=== PATIENT | female | born 1950 | race African-American/Black ===

== ENCOUNTER 2016-05-25 18:25 | Emergency (ER) ==
[2016-05-25 20:15] LABS: BASO% 0.4 % (0.0-0.8); EOS# 0.36 X1000 (0.0-0.7); EOS% 3.3 % (0.0-10.0); HEMATOCRIT 29.2 % (37.0-47.0); HEMOGLOBIN 9.6 g/dL (12.0-16.0); IMM GRAN# 0.05 X1000 (0.0-0.04); IMM GRAN% 0.5 % (0.0-0.5); LYMPH# 3.01 X1000 (1.2-3.4); LYMPH% 27.5 % (20.5-51.1); MANUAL DIFF NEEDED? NO; MCH 27.2 PG (27-31); MCHC 32.9 g/dL (33-37); MCV 82.7 FL (81-99); MPV 10.1 FL (7.4-10.4); NEUT% 57.3 % (42.2-75.2); PLT 469 X1000 (130-400); RBC 3.53 XMIL (4.2-5.4)
[2016-05-25] MEDS ORDERED: ZOFRAN IV ONE (20:17)
[2016-05-25] MEDS ORDERED: NS 1,000 ML IV ONE (20:17)
--- NOTE | 2016-05-25 20:18 | PROVIDER DOCUMENTATION ---
HPI-Abdominal Pain/GI Problem - General Source: patient - History of Present Illness-ABD Nature of Presenting Problems: 65 year old AAF presents with c/o vomiting x 3 today, decreased appetite, diarrhea x 1. Pt reports cramping just prior to diarrhea, otherwise denies abd pain. pt has a washout scheduled for the surgical site to her right hip tomorrow morning. pt had an ORIF 1 month ago and has been having difficulty healing. the surgical site is still open, dressing in place. denies fever, chills. Abdominal Pain Onset Location: reports: generalized abdomen (jut prior to diarrhea, otherwise pain free.) Pain Radiation: reports: no radiation Quality of Pain: reports: cramping Severity in ED: reports: mild Onset/Duration: reports: this afternoon Timing: reports: still present, improving Activities at Onset: reports: none Exposure to sick contacts?: No <Prince Rodrigues - Last Filed: 05/26/16 01:27> <Ace Ellis - Last Filed: 05/26/16 01:55> <Mk Cho - Last Filed: 05/26/16 04:30> - General Chief Complaint: Vomiting Stated Complaint: VOMITING, SHAKING Time Seen by Provider: 05/25/16 19:55 Allergies/Adverse Reactions: Patient Allergies Allergy/AdvReac Type Severity Reaction Status Date / Time No Known Allergies Allergy Verified 05/25/16 19:54 Home Medications: Home Medication List Medication Instructions Recorded Confirmed Last Taken Type LISINOpril [Prinivil] 20 mg PO DAILY 12/06/15 05/26/16 05/25/16 07:00 History Metoprolol [Lopressor] 50 mg PO DAILY 12/06/15 05/26/16 05/25/16 07:00 History ROSUVAstatin [Crestor] 20 mg PO DAILY 12/06/15 05/26/16 05/25/16 07:00 History Celecoxib [Celebrex] 200 mg PO BID #0 capsule 05/01/16 05/26/16 05/25/16 20:00 Rx Oxycodone I.r. [Oxy Ir] 5 - 10 mg PO Q3H PRN PRN #60 05/01/16 05/26/16 05/25/16 12:00 Rx capsule Tramadol [Ultram] 100 mg PO Q6H #120 tablet 05/01/16 05/26/16 05/25/16 20:00 Rx Budesonide/Formoterol Inhaler 2 puff INH BID 05/23/16 05/26/16 Unknown History [Symbicort 80/4.5 Microgm Inhaler] Metformin [Glucophage] 500 mg PO TID 05/26/16 05/26/16 05/25/16 20:00 History Rivaroxaban [Xarelto] 10 mg PO DAILY 05/26/16 05/26/16 Unknown History Review of Systems - Adult - REVIEW OF SYSTEMS - ADULT Constitutional: reports: no symptoms reported. denies: chills, fever, fatique Eyes: reports: no symptoms reported. denies: discharge, blurred vision, double vision Ears, Nose, Mouth & Throat: reports: no symptoms reported. denies: ear discharge, ear pain, nose pain, loose teeth, throat pain, throat swelling Cardiovascular: reports: no symptoms reported. denies: chest pain, palpitations , syncope Respiratory: reports: no symptoms reported. denies: chronic cough, cough, shortness of breath, wheezing Gastrointestinal: reports: see HPI, nausea, poor appetite, vomiting. denies: abdominal pain, hematemesis, constipation, diarrhea, difficulty swallowing, frequent heartburn, rectal bleeding Genitourinary: reports: no symptoms reported. denies: dysuria, hematuria, urgency Musculoskeletal: reports: no symptoms reported. denies: bone pain, joint pain, joint swelling, neck pain Integumentary: reports: no symptoms reported. denies: hives, itching, rash, skin sores/ulcer Neurological: reports: no symptoms reported. denies: ataxia, numbness, paresthesia Psychiatric: reports: no symptoms reported Endocrine: reports: no symptoms reported Hematologic/Lymphatic: reports: no symptoms reported Allergic/Immunologic: reports: no symptoms reported All Other Systems: Reviewed and Negative <Prince Rodrigues - Last Filed: 05/26/16 01:27> Past History - Adult - PAST MEDICAL HISTORY-ADULT Review of Records: reports: Old Records Reviewed, Nursing Assessment Review, Medications Reviewed, Social history reviewed & non-contributory. Major Childhood Illnesses: reports: denies history Cardiovascular: reports: HTN Respiratory: reports: denies history Gastrointestinal: reports: denies history Obstetrical/Gynecological: reports: denies history Genitourinary: reports: denies history Musculoskeletal: reports: arthritis, intervertebral disc disease Neurological: reports: denies history Endocrine/Immune: reports: Diabetes (on metformin) Other Conditions: reports: denies history - PRIOR SURGERIES/PROCEDURES Surgical/Procedure History: reports: orthopedic (extremity) - FAMILY HISTORY Family History: reviewed, not pertinent - SOCIAL HISTORY Smoking: cigarettes Provider spent 3-5 mins advising pt. on dangers of tobacco.: Discussed manners to quit use, and f/u contacts for add'l counseling. Substance Use: none/never Alcohol Use Frequency: never <Prince Rodrigues - Last Filed: 05/26/16 01:27> Physical Exam-General - PHYSICAL EXAM-ADULT Initial Vital Signs Reviewed: Yes - CONSTITUTIONAL General Appearance: appears well, alert, no apparent distress. negative: cachetic, obese - EYES Eyes: pink conjunctivae. negative: conjuctival exudate, pale conjunctivae, photophobia, sclera injected, scleral icterus - HEAD, EARS, NOSE, MOUTH & THROAT HENMT: normocephalic/atraumatic, moist mucous membranes, normal ENT inspection - NECK Neck: non-tender, full range of motion, supple, normal inspection. negative: C- spine tenderness, limited range of motion, tender lateral, tender midline - RESPIRATORY Respiratory: chest non-tender, lungs clear, normal breath sounds, no pleuratic chest pain, no respiratory distress, no accessory muscle use - CARDIOVASCULAR Cardiovascular: normal peripheral pulses, regular rate, rhythm - CHEST (BREASTS) Chest/Breast: deferred - GASTROINTESTINAL (ABDOMEN) Abdominal Exam: normal bowel sounds, non tender, soft, no organomegaly. negative: distended, guarding, rigid, rebound, tenderness, hernia, mass, hepatomegaly, spleenomegaly, McBurney's point tenderness, Ortiz's sign, obturator sign, psoas, Rovsing's sign - GENITOURINARY Female Genitalia/Pelvic Exam: deferred Rectal Exam: deferred Hemoccult Exam: deferred - LYMPHATIC Lymphatic: no adenopathy - MUSCULOSKELETAL Back Exam: normal inspection, no CVA tenderness, no vertebral tenderness. negative: CVA tenderness, decreased range of motion, swelling, vertebral tenderness Extremity: pelvis stable, abnormal NV exam, pedal edema (trace pedal edema to right lower extremity.), other. negative: normal range of motion (decreased to RLE), non-tender (right anterior hip surgical site open.), normal gait, normal inspection, no pedal edema, calf tenderness, deformity Peripheral Pulses: radial (R): 3+, radial (L): 3+, dorsalis-pedis (R): 3+, dorsalis-pedis (L): 3+ - SKIN Integumentary: normal color, normal turgor, warm/dry. negative: purpura, rash, swelling, tenderness - NEUROLOGIC Neurologic: grossly normal, no motor/sensory deficits. negative: facial droop, focal weakness, motor weakness, sensory deficit - PSYCHIATRIC Psych/Mental Status: normal mood/affect, normal thought content, normal thought process, oriented x 3 <Prince Rodrigues - Last Filed: 05/26/16 01:27> Progress - PLAN OF CARE/RESULTS Progress/Plan/Lab Results: Laboratory Tests 05/25/16 05/25/16 05/25/16 20:02 20:02 21:58 WBC 10.94 H RBC 3.53 L Hgb 9.6 L Hct 29.2 L MCV 82.7 MCH 27.2 MCHC 32.9 L RDW Std Deviation 17.3 H Plt Count 469 H MPV 10.1 Immature Gran % (Auto) 0.5 Neut % (Auto) 57.3 Lymph % (Auto) 27.5 [place] % (Auto) 11.0 H Eos % (Auto) 3.3 Baso % (Auto) 0.4 Immature Gran # (Auto) 0.05 H Neut # (Auto) 6.28 Lymph # (Auto) 3.01 [place] # (Auto) 1.20 H Eos # (Auto) 0.36 Baso # (Auto) 0.04 Sodium 142 Potassium 4.8 Chloride 103 Carbon Dioxide 25 Anion Gap 14 BUN 15 Creatinine 1.4 H Estimated GFR/1.73 m2 45 BUN/Creatinine Ratio 11 Glucose 97 Calculated Osmolality 284 Calcium 10.3 H Total Bilirubin 0.36 AST 38 H ALT 42 H Alkaline Phosphatase 178 H Total Protein 7.9 Albumin 3.9 Globulin 4.0 Albumin/Globulin Ratio 1.0 Amylase 215 H Lipase 25 Urine Source CLEAN CATCH Urine Color YELLOW Urine Turbidity CLEAR Urine pH 7.5 Ur Specific [place] 1.010 Urine Protein NEGATIVE Ur Glucose (Stick) NEGATIVE Ur Ketones (Stick) NEGATIVE Urine Blood NEGATIVE Urine Nitrite NEGATIVE Urine Bilirubin NEGATIVE Urobilinogen Dipstick NORMAL Urine Leukocytes NEGATIVE Urine WBC (Auto) <10 Urine RBC (Auto) <10 U Epithel Cells (Auto) <10 Urine Bacteria (Auto) NEGATIVE Orders Category Date Time Status Saline Loc DIRECTED Care 05/25/16 19:20 Active NPO Diet 05/25/16 19:20 Active FLAT/UPRIGHT ABD/1 VIEW CHEST [RAD] Stat Exams 05/25/16 20:17 Taken US GB < RUQ (LIMITED) [US] Stat Exams 05/25/16 22:20 Taken AMYLASE [CHEM] Stat Lab 05/25/16 20:02 Completed CBC WITH ELECTRONIC DIFF [HEME] Stat Lab 05/25/16 20:02 Completed COMPREHENSIVE METABOLIC PANEL [CHEM] Stat Lab 05/25/16 20:02 Completed LIPASE [CHEM] Stat Lab 05/25/16 20:02 Completed URINALYSIS W/POSS RFLX CULT [URINALYSIS] Stat Lab 05/25/16 21:58 Completed 0.9% Sodium Chloride Inj [Ns] 1,000 ml Med 05/25/16 20:17 Discontinued IV 999 mls/hr Ondansetron [Zofran] Med 05/25/16 20:17 Discontinued 4 mg IV NOW ONE Vital Signs - 24 hr 05/25/16 05/25/16 05/26/16 18:30 22:53 00:40 Temperature 98.9 F Pulse Rate 111 H 83 78 Respiratory 18 18 19 Rate Blood Pressure 172/73 102/51 118/75 O2 Sat by Pulse 98 100 95 Oximetry Reviewed radiology results, labs, H&P with Dr. Cho, agrees with plan of care and treatment. - REASSESSMENT Reassessment #1 Time Reassessed: 00:43 Status: improving (pt is pain free) - XRAY 1 XRAY Study: Chest, Abdomen Impression: Normal (nonspecific bowel gas pattern. per Dr. Cho) - ULTRASOUND (By Radiology) 1 US Study: Gallbladder Impression: Abnormal (multifocal cholelithiasis, see radiology report for findings. per Dr. Trejo.) - CHANGE OF SHIFT REPORT (ED Provider) Report Given and Care Transferred to:: Dr. Cho Time of Transfer: 01:28 Items Pending: CT/MRI Results (CT abd/pelvis results and general surgery consult ) Tentative Impression of Patient: 1. cholelithiasis 2. common bile duct dilation , unknown etiology. <Prince Rodrigues - Last Filed: 05/26/16 01:27> - CT/MRI 1 CT Study: Abdomen, Pelvis Impression: See EMR Report CT Results: Cholelithiasis present <Ace Ellis - Last Filed: 05/26/16 01:55> Departure - Departure Certified Medical Emergency: Emergent <Prince Rodrigues - Last Filed: 05/26/16 01:27> <Ace Ellis - Last Filed: 05/26/16 01:55> - Departure Time of Disposition Order: 04:00 Certified Medical Emergency: Emergent <Mk Cho - Last Filed: 05/26/16 04:30> - Departure DIAGNOSIS: Cholelithiasis Qualifiers: Cholelithiasis location: gallbladder Cholecystitis presence: without cholecystitis Biliary obstruction: without biliary obstruction Qualified Code(s) : K80.20 - Calculus of gallbladder without cholecystitis without obstruction Disposition: HOME 01 Condition: Stable Additional Instructions: ED Follow Up Instructions: You have been treated by a care provider in the Emergency Department. These instructions are being provided to you so you can have an understanding of how to care for yourself upon discharge. Upon discharge from the Emergency Department, you are responsible for making arrangements for follow-up care by a physician of your choice. Take all prescribed medications as directed. Return to the Emergency Department immediately for any new or worsening symptoms. You may call the Physician Referral phone number at [phone] to obtain a list of Physicians who are taking new patients. Referrals: Ricardo Hyatt Jr, MD [Primary Care Provider] - Instructions: Cholelithiasis, [id number] Attestation - Physician/ MALIK Attestation Patient care was provided by Advanced Practice Provider:: Yes Advanced Practice Provider:: Prince Rodrigues Advanced Practice Provider documentation review:: The Mid-level provider documentation, treatment plan and medical decision making was reviewed by the physician who agrees with all treatment and medical decision making by the [facility]. <Prince Rodrigues - Last Filed: 05/26/16 01:27> Physician Attestation
[2016-05-25 20:39] LABS: ALBUMIN 3.9 g/dL (3.5-5.0); CALCIUM 10.3 mg/dL (8.8-10.2); POTASSIUM 4.8 mmol/L (3.5-5.1); TOTAL BILIRUBIN 0.36 mg/dL (0.20-1.00); TOTAL PROTEIN 7.9 g/dL (6.3-8.3)
[2016-05-25 22:25] LABS: URINE CULTURE NEEDED? NO; URINE MICRO REVIEW NEEDED? NO; URINE SOURCE CLEAN CATCH
[2016-05-25 22:30] LABS: BILIRUBIN URINE NEGATIVE (NEGATIVE); BLOOD URINE NEGATIVE (NEGATIVE); COLOR YELLOW; GLUCOSE URINE NEGATIVE (NEGATIVE); LEUKOCYTES URINE NEGATIVE (NEGATIVE); NITRITE URINE NEGATIVE (NEGATIVE); PH URINE 7.5; PROTEIN URINE NEGATIVE (NEGATIVE); TURBIDITY URINE CLEAR (CLEAR); UROBILINOGEN URINE NORMAL (NORMAL)
[2016-05-25 22:32] LABS: UR EPITHELIAL CELLS <10 /HPF (<10); URINE BACTERIA NEGATIVE /HPF; URINE RBC <10 /HPF (<10); URINE WBC <10 /HPF (<10)
[2016-05-26 04:39] VITALS: BP 120/64
--- NOTE | 2016-05-26 08:04 | Diag Imaging Result Document ---
PROCEDURE NAME: FLAT/UPRIGHT ABD/1 VIEW CHEST - 05/25/2016 FLAT AND UPRIGHT ABDOMEN: FINDINGS: There is gas and stool throughout the colon. The small bowel and stomach are not distended. There is no evidence of organomegaly or mass. IMPRESSION: Constipation. AP CHEST: FINDINGS: Normal chest.
--- NOTE | 2016-05-26 08:31 | Diag Imaging Result Document ---
PROCEDURE NAME: US GB < RUQ (LIMITED) - 05/25/2016 RIGHT UPPER QUADRANT ULTRASOUND: FINDINGS: The pancreatic head and body are normal in appearance. The aorta and inferior vena cava are normal where they are visible. The liver is unremarkable in appearance. There is antegrade flow in the portal vein. The common bile duct measures 1 cm in diameter. The gallbladder appears to be filled with stones. One may be as much as 3 cm in diameter. There is no sonographic Ortiz's sign. The gallbladder does not appear to be distended. The right kidney is without evidence of hydronephrosis or mass. IMPRESSION: Cholelithiasis.
--- NOTE | 2016-05-26 10:13 | Diag Imaging Result Document ---
PROCEDURE NAME: ABDOMEN/PELVIS W/O CONTRAST - 05/26/2016 CT ABDOMEN AND PELVIS WITHOUT CONTRAST: COMPARISON: None available. FINDINGS: There is mild focal scarring in the right middle lobe and right lower lobe at the base. There is a small calcified granuloma in the right middle lobe. There is a small calcified granuloma in the left hepatic lobe. There is a large calcified stone in the lumen of the gallbladder measuring up to 2.9 cm axially. No pericholecystic inflammatory change can be identified. There may be very mild dilation of the proximal common bile duct. There is no intrahepatic biliary dilatation. The pancreas is grossly unremarkable given the limitations of unenhanced CT. There is mild atherosclerotic calcification involving the distal aorta and more significant iliac atherosclerotic calcification. There are calcifications in the uterus suggesting likely uterine leiomyomata. There is no evidence of bowel obstruction. The kidneys are grossly unremarkable. No focal inflammatory change, free abdominal gas, or free fluid is identified. The remainder of the solid viscera of the abdomen and pelvis and the remainder of the GI tract is essentially unremarkable. There has been a prior right hip arthroplasty and there is associated beam hardening artifact. There is extensive degenerative disk disease involving the lower lumbar spine. IMPRESSION: 1. Cholelithiasis and perhaps very mild dilation of the proximal common bile duct but no surrounding inflammatory changes identified by CT. 2. Other incidental/nonacute findings detailed above.
== END 2016-05-26 05:02 | disposition home or self-care (01) ==
LOC: ED 18:25
DX: K80.20 Calculus of gallbladder without cholecystitis without obstruction (principal); R11.2 Nausea with vomiting, unspecified; R19.7 Diarrhea, unspecified; R10.84 Generalized abdominal pain; I10 Essential (primary) hypertension; M19.90 Unspecified osteoarthritis, unspecified site; E11.9 Type 2 diabetes mellitus without complications; F17.210 Nicotine dependence, cigarettes, uncomplicated; Z79.899 Other long term (current) drug therapy; Z79.01 Long term (current) use of anticoagulants; Z71.6 Tobacco abuse counseling
CPT/HCPCS: 74022; 74176; 76705; 80053; 81001; 82150; 83690; 85025; J2405; J7030

== ENCOUNTER 2016-05-26 10:48 | Inpatient (IN) ==
[2016-05-26] MEDS ORDERED: LR 1,000 ML ONE (11:41)
[2016-05-26] MEDS ORDERED: NEOSPORIN G.U. IRRIGANT ONE (15:09)
[2016-05-26] MEDS ORDERED: CLAVE SECONDARY SET 11953 ONE (15:22)
[2016-05-26] MEDS ORDERED: VANCOMYCIN 1 GM/NS 250 ML ONE (15:22)
[2016-05-26] MEDS ORDERED: SENSORCAINE 0.5%-EPI 1:200,000 ONE (15:59)
[2016-05-26] MEDS ORDERED: DIPRIVAN 1% ONE (16:18)
[2016-05-26] MEDS ORDERED: VERSED ONE (16:18)
[2016-05-26] MEDS ORDERED: FENTANYL ONE (16:20)
[2016-05-26] MEDS ORDERED: ZOFRAN ONE (16:29)
[2016-05-26] MEDS ORDERED: XYLOCAINE-MPF 2% ONE (16:30)
[2016-05-26] MEDS ORDERED: DECADRON ONE (16:30)
[2016-05-26] MEDS ORDERED: MORPHINE ONE (16:36)
[2016-05-26] MEDS ORDERED: MORPHINE IV PRN (17:06)
[2016-05-26] MEDS ORDERED: VANCOMYCIN IV PER PHARMACY MISC SCH (17:15)
[2016-05-26] MEDS ORDERED: OXY IR PO PRN (17:26)
[2016-05-26] MEDS ORDERED: VANCOMYCIN 500 MG/NS 100 ML IV ONE (18:00)
[2016-05-26] MEDS: ULTRAM PO SCH ×2 (18:04→21:49)
[2016-05-26] MEDS ORDERED: NS 1,000 ML ONE (18:33)
[2016-05-26] MEDS: NS 1,000 ML IV SCH (18:39)
--- NOTE | 2016-05-26 19:18 | OPERATIVE NOTE ---
PROCEDURE DATE: 05/26/2016 PREOPERATIVE DIAGNOSIS: Right infected total hip arthroplasty superficial wound infection. POSTOPERATIVE DIAGNOSIS: Right infected total hip arthroplasty superficial wound infection. PROCEDURE PERFORMED: Incision and drainage of right hip superficial wound infection. SURGEON: German Young MD COLLECTIONS AND ARCHIVES DIRECTOR: Adair Rodrigues RN ANESTHESIA: General. COMPLICATIONS: None. BLOOD LOSS: Minimal. DESCRIPTION OF PROCEDURE: The patient was brought to the operative suite and placed in supine position. After successful administration of general anesthesia, the right hip was prepped and draped in the usual sterile fashion. Cultures were taken of the wound and then she was given a gram of Ancef. The sinus tract was excised elliptically and then the wound was extended distally to include the entire pocket which communicated with the sinus. Once the pocket was excised back to bleeding, healthy tissue, the wound was copiously irrigated with normal saline containing irrigant. A drain was placed in the wound, exiting distally, and wound was closed with interrupted 3-0 nylon suture. The wound was injected with 0.5% Marcaine with epinephrine and then a sterile dressing was applied. The patient tolerated the procedure well without complication. At the end of the procedure, all counts were correct. The patient was transferred to the recovery room in stable condition.
[2016-05-26] MEDS: SYMBICORT 80/4.5 MICROGM INHALER INH SCH (19:39)
[2016-05-26] MEDS: CELEBREX PO SCH (21:49)
[2016-05-26] MEDS: PERIDEX MT SCH (21:49)
[2016-05-27] MEDS: ULTRAM PO SCH ×5 (00:54→23:08)
--- NOTE | 2016-05-27 09:10 | PROGRESS NOTE ---
DATE: 05/27/2016 SUBJECTIVE: Fawn Nickerson, a 65-year-old female, had a superficial wound infection of her right recent total hip arthroplasty. She is postoperative day 1 from an irrigation and debridement of this wound. She has no complaints. OBJECTIVE: General: She is a well-developed, well-nourished female. She is alert, oriented, and cooperative. Vital Signs: She is afebrile. Extremities: Her dressing is clean, dry, and intact. She has had no output from her drain. LABS: Her Gram stain was negative. We await her culture results. ASSESSMENT: Postoperative day 1 from a right hip wound with irrigation and debridement. PLAN: We will continue to keep her on IV antibiotics for now. We will await her culture results, and depending on those she may go home with p.o. versus IV medications later in the week. We will make her a full admission today.
[2016-05-27] MEDS: SYMBICORT 80/4.5 MICROGM INHALER INH SCH ×2 (09:30→19:18)
[2016-05-27] MEDS: PERIDEX MT SCH ×2 (09:41→21:11)
[2016-05-27] MEDS: GLUCOPHAGE PO SCH ×4 (09:41→16:31)
[2016-05-27] MEDS: CELEBREX PO SCH ×2 (09:41→21:13)
[2016-05-27] MEDS: PRINIVIL PO SCH (09:42)
[2016-05-27] MEDS: LOPRESSOR PO SCH (09:42)
[2016-05-27] MEDS: CRESTOR PO SCH (09:42)
[2016-05-27] MEDS ORDERED: CITRATE OF MAGNESIA PO ONE (12:40)
[2016-05-27] MEDS ORDERED: MILK OF MAGNESIA PO PRN (15:52)
--- NOTE | 2016-05-27 15:55 | CONSULTATION ---
DATE OF CONSULTATION: 05/27/2016 CONCLUSION: Patient is status post incision and drainage of a right total hip arthroplasty wound infection. The patient's creatinine is 1.4 and the GFR is 45. RECOMMENDATIONS: I have switched the patient from vancomycin to Ancef in view of the fact that the patient's creatinine is elevated and the GFR is depressed slightly. I plan to write for the patient to have home p.o. antibiotics depending on the culture results. DISCUSSION: The patient was admitted to the hospital because she had been having drainage from her right hip. Cultures from the hip have shown no growth thus far. She underwent incision and drainage of the hip wound. The patient's lab work shows a creatinine of 1.4, GFR of 45, a CBC with a white count of 10,940, hemoglobin 9.6, and platelet count 469,000. The right hip cultures and stains thus far are negative for organisms. The patient had drainage from her hip for 2 weeks. Approximately a month ago she had a right total hip arthroplasty. PAST MEDICAL HISTORY/REVIEW OF SYSTEMS: Eyes and ears: She denies difficulty hearing or seeing. Neck: No stiffness. Respiratory: No cough or shortness of breath. Cardiac: No chest pain or palpitations. GI: No nausea, vomiting, or diarrhea. The patient in the past 2 days has not passed stool. : No flank pain or dysuria. Endocrine: Patient is diabetic but does not have thyroid disease. Hematologic: The patient does not have a history of anemia or bleeding tendency. Neurologic: No history of seizures. No motor or sensory deficit. Integument: No rash noted. The remainder of the patient's review of systems was completed and was negative. 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 She has had a tubal ligation. PREVIOUS HOSPITALIZATIONS AND OPERATIONS: She has had labor and deliveries, tubal ligation, myocardial infarction, and removal of colon polyps. MEDICAL DISEASES: Positive for colon polyps, diabetes mellitus, hypertension, myocardial infarction, hyperlipidemia, and osteoarthritis. INFECTIOUS DISEASE HISTORY: Negative for pneumonia and UTI. FAMILY HISTORY: Positive for diabetes mellitus, hypertension, myocardial infarction, and cancer. SOCIAL HISTORY: [place] She is a . She has a cat as a pet. HOME MEDICATIONS: Include the following. Ultram, Xarelto, Crestor, oxycodone, Lopressor, Glucophage, Prinivil, Celebrex, Symbicort, and aspirin. PHYSICAL EXAMINATION: Vital Signs: Temperature is 97.8 degrees, pulse 76, respirations 16, blood pressure 111/55. General: This is a fairly healthy-appearing, elderly female. She is in no acute distress. Head, eyes, ears, nose, and throat: She can hear my spoken words and see near objects. No drainage noted from the nose or ears. Neck: No meningismus. Thorax: No increased AP diameter to the chest. Lungs: Clear to auscultation. Cardiovascular: Regular heart rate. Abdomen: Soft and nontender. Extremities: The patient has a right hip incision. There is a drain in place which has sanguinous fluid in it. Neurologic: Patient is alert. She can move her extremities. There is no tremor. Her sensation is intact to touch. Her memory as regarding her medical history is intact.
[2016-05-27] MEDS: KEFZOL 2 GM/D5W 50 ML IV SCH ×2 (16:32→23:09)
[2016-05-27] MEDS ORDERED: VANCOMYCIN 1 GM/NS 250 ML IV SCH (18:00)
[2016-05-27] MEDS ORDERED: NS 1,000 ML ONE (21:03)
[2016-05-27] MEDS: NS 1,000 ML IV SCH (21:10)
[2016-05-28] MEDS: ULTRAM PO SCH ×4 (06:11→17:09)
[2016-05-28] MEDS: KEFZOL 2 GM/D5W 50 ML IV SCH ×3 (06:12→16:55)
[2016-05-28] MEDS: SYMBICORT 80/4.5 MICROGM INHALER INH SCH (08:18)
--- NOTE | 2016-05-28 08:30 | PROGRESS NOTE ---
DATE: 05/28/2016 PRESENT ILLNESS: The patient yesterday had incision and drainage of a right total hip arthroplasty wound. The surgical area did not extend deep and specifically did not extend to the patient's joint or bone. Thus far all the cultures taken at surgery are negative. MEDICATIONS: The patient currently is receiving Ancef. PHYSICAL EXAMINATION: Vital Signs: Temperature is 99.1 degrees, pulse 73, respirations 16, blood pressure 117/63. General: This is a fairly healthy-appearing, elderly female. She is in no acute distress. Lungs: Clear to auscultation. Cardiovascular: Regular heart rate. Abdomen: Soft and nontender. Extremities: The right hip incision is clean and intact. The drain unfortunately came out when I took off the dressing. There is only a minimal amount of sanguinous drainage. LAB AND X-RAY: There is no new lab today and thus far all of the cultures are negative. ASSESSMENT AND PLAN: Patient has had incision and drainage of the infection. I have written the patient a prescription for doxycycline and Augmentin to take for 1 week. The patient will have follow up with Dr. Young. I am available to see the patient on a p.r.n. basis. The patient's only comorbidities are the fact that she is elderly and she did have surgery and she also is a diabetic. I have written the patient's prescription; it is in her chart.
[2016-05-28] MEDS: CRESTOR PO SCH (08:58)
[2016-05-28] MEDS: GLUCOPHAGE PO SCH ×3 (08:58→17:07)
[2016-05-28] MEDS: LOPRESSOR PO SCH (08:58)
[2016-05-28] MEDS: PRINIVIL PO SCH (08:58)
[2016-05-28] MEDS: CELEBREX PO SCH (08:58)
[2016-05-28] MEDS: PERIDEX MT SCH (08:59)
[2016-05-28 12:11] VITALS: BP 117/67
[2016-05-28] MEDS ORDERED: ZOFRAN PO ONE (16:54)
--- NOTE | 2016-05-30 20:43 | DISCHARGE SUMMARY ---
ADMISSION DATE: 05/26/2016 DISCHARGE DATE: 05/28/2016 DISCHARGE DIAGNOSIS: Right total hip arthroplasty surgical wound with superficial infection status post irrigation and debridement of the wound. DISPOSITION: Patient discharged home with home health, wound care and physical therapy for her hip. DISCHARGE MEDICATIONS: Doxycycline and Augmentin for 1 week. FOLLOWUP: She is to follow up with me in 1 week as well. HOSPITAL COURSE: On the day of admission, patient underwent irrigation and debridement of her right hip wound. Her postoperative course is unremarkable. At discharge her wound is clean, dry, intact without sign of infection. She is discharged home in stable condition with instructions to follow up as described above.
== END 2016-05-28 18:04 | disposition home or self-care (01) | DRG 863 ==
LOC: OR 10:48 → 4N 16:37 → OBSVTOIN 05-27 15:16
PROVIDERS: ADMIT Orthopaedic Surgery; ATTEND Orthopaedic Surgery
PROC: 0J9L00Z Drainage of Right Upper Leg Subcutaneous Tissue and Fascia with Drainage Device, Open Approach (ICD-10-PCS; principal; 2016-05-26 15:28)
DX: T81.4XXA Infection following a procedure, initial encounter (principal); J44.9 Chronic obstructive pulmonary disease, unspecified; I25.10 Atherosclerotic heart disease of native coronary artery without angina pectoris; I25.2 Old myocardial infarction; I10 Essential (primary) hypertension; E11.9 Type 2 diabetes mellitus without complications; E78.00 Pure hypercholesterolemia, unspecified; E78.5 Hyperlipidemia, unspecified; K21.9 Gastro-esophageal reflux disease without esophagitis; M19.90 Unspecified osteoarthritis, unspecified site; F17.210 Nicotine dependence, cigarettes, uncomplicated; Z79.899 Other long term (current) drug therapy; Z79.02 Long term (current) use of antithrombotics/antiplatelets; Z79.84 Long term (current) use of oral hypoglycemic drugs; Z79.1 Long term (current) use of non-steroidal anti-inflammatories (NSAID); Z79.82 Long term (current) use of aspirin; Z95.5 Presence of coronary angioplasty implant and graft; Z96.641 Presence of right artificial hip joint; Z80.9 Family history of malignant neoplasm, unspecified; Z83.3 Family history of diabetes mellitus; Z82.49 Family history of ischemic heart disease and other diseases of the circulatory system
CPT/HCPCS: 87070; 87075; 87077; 87186; 87205; 94761; 94799; J0690; J1100; J2250; J2270; J2405; J3010; J3370; J7030; J7040; J7120; 94640-76; 97116-GP